=== PATIENT | male | born 1980 | race Caucasian/White ===

== ENCOUNTER → 2024-09-28 | Emergency (ER) | payer MEDICAID ==
[~2024-09-28] VITALS: Ht 182.9 cm; Wt 99.6 kg
[~2024-09-28] MED LIST: CLAR500T99 PO; LIDOCAINE MPF 1% 5 ML ONE; cefTRIAXone 1,000 MG VIAL ONE
[2024-09-28 17:51] VITALS: BP 104/64; PULSE 95; RESP 18; TEMP 97; O2SAT 95
[2024-09-28 19:05] VITALS: TEMP 97.9
[2024-09-28 21:11] LABS: BASOPHILS % (AUTO) 0.4 % (0.0-2.0); EOSINOPHILS # (AUTO) 0.1 K/uL (0-0.4); HEMATOCRIT 41.8 % (36-52); MEAN CORPUSCULAR HEMOGLOBIN 32 pg (27-31); MEAN CORPUSCULAR HGB CONC 33 g/dL (33-37); MEAN CORPUSCULAR VOLUME 96.3 fL (80-94); MONOCYTES # (AUTO) 0.6 K/uL (0.8-1.0); MONOCYTES % (AUTO) 7.1 % (1.7-9.3); NEUTROPHILS # (AUTO) 6.8 K/uL (1.8-7.7); NEUTROPHILS % (AUTO) 79.5 % (42.2-75.2); PLATELET COUNT (AUTO) 138 K/uL (140-450); RED BLOOD CELL COUNT(AUTO) 4.34 MIL/uL (4.20-6.10); RED CELL DISTRIBUTION WIDTH 13.9 % (11.6-13.7); WHITE BLOOD COUNT (AUTO) 8.5 K/uL (4.8-10.8)
[2024-09-28] MEDS: FUROSEMIDE 40 MG/4 ML VIAL IVP ONE (21:24)
[2024-09-28] MEDS: cefTRIAXone 1,000 MG in LIDOCAINE MPF 1% 2.1 ML IM ONE (21:43)
[2024-09-28 21:44] LABS: AMPHETAMINE, URINE POSITIVE ng/ml (NEG <=1000); BARBITURATE, URINE NEGATIVE ng/ml (NEG <=200); BENZODIAZEPINE, URINE NEGATIVE ng/mL (NEG <=200); CANNABINOID, URINE NEGATIVE ng/mL (NEG <=50); COCAINE, URINE NEGATIVE ng/mL (NEG <=300); OPIATE, URINE NEGATIVE ng/mL (NEG <=2000); PHENCYCLIDINE SCREEN,URINE POSITIVE ng/mL (NEG <=25)
[2024-09-28 21:52] VITALS: BP 108/69; PULSE 78; RESP 14; O2SAT 95
== END | disposition home or self-care (01) ==
LOC: MED 17:48
DX: J18.9 Pneumonia, unspecified organism (principal); I50.9 Heart failure, unspecified; Z95.0 Presence of cardiac pacemaker; Z95.4 Presence of other heart-valve replacement; Z79.899 Other long term (current) drug therapy
CPT/HCPCS: 36415; 71045; 80305; 83880; 84484; 85025; 87040; 93005; J0696; J2003; Q0092; 96372; 99285